=== PATIENT | female | born 1960 | race Caucasian/White ===

== ENCOUNTER 2020-10-07 10:45 | Emergency (ER) | payer OTHER ==
[~2020-10-07] VITALS: Ht 165.1 cm; Wt 61.6 kg
[2020-10-07 10:46] VITALS: BP 132/85
[2020-10-07] MEDS ORDERED: MICROFIBRILLAR COLLAGEN 1 GM TP ONE (11:14)
[2020-10-07] MEDS ORDERED: LIDOCAINE-MPF 1%, 5ML ONE (11:14)
[2020-10-07] MEDS ORDERED: DIPH,PERTUSS(ACELL),TET VAC/PF 0.5 ML IM-VACC ONE ×2 (11:14→11:30)
[2020-10-07] MEDS ORDERED: MICROFIBRILLAR COLLAGEN 0.5GM/PACK TP ONE (11:30)
[2020-10-07] MEDS ORDERED: LIDOCAINE-MPF 1%, 5ML INFIL ONE (11:30)
--- NOTE | 2020-10-07 11:48 | NUR ---
Patient given wound care/discharge instructions and they have confirmed that they understand the instructions. Patient ambulatory with steady gait.
== END 2020-10-07 11:56 | disposition home or self-care (01) ==
LOC: ED 11:32
DX: S61.212A Laceration without foreign body of right middle finger without damage to nail, initial encounter (principal); E03.9 Hypothyroidism, unspecified; I10 Essential (primary) hypertension; Z90.710 Acquired absence of both cervix and uterus; Z90.49 Acquired absence of other specified parts of digestive tract; W26.9XXA Contact with unspecified sharp object(s), initial encounter; Y93.89 Activity, other specified; Y92.009 Unspecified place in unspecified non-institutional (private) residence as the place of occurrence of the external cause; Y99.8 Other external cause status
CPT/HCPCS: 90471; 90715; 99283